=== PATIENT | female | born 1960 | race Caucasian/White ===

== ENCOUNTER 2018-07-08 15:52 | Emergency (ER) | payer OTHER ==
[2018-07-08] MEDS ORDERED: METHYLPREDNISOLONE 125 MG INJ IV (16:26)
[2018-07-08] MEDS ORDERED: IPRATROPIUM (NEB) 0.5 MG/2.5 ML AMP NEB (16:26)
[2018-07-08] MEDS: METHYLPREDNISOLONE 125 MG INJ IM (16:56)
[2018-07-08] MEDS: IPRATROPIUM (NEB) 0.5 MG/2.5 ML AMP NEB (17:08)
[2018-07-08] MEDS: ALBUTEROL 0.083% (NEB) 2.5 MG/3 ML AMP NEB (17:08)
== END 2018-07-08 18:09 | disposition home or self-care (01) ==
LOC: FTE 15:52
DX: J20.9 Acute bronchitis, unspecified (principal); J45.901 Unspecified asthma with (acute) exacerbation; I10 Essential (primary) hypertension
CPT/HCPCS: 71045; 94664; 96372; 99284-25